=== PATIENT | male | born 2005 | race Caucasian/White ===

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

== ENCOUNTER → 2023-03-21 | Emergency (ER) | payer BC ==
[~2023-03-21] VITALS: Ht 190.5 cm; Wt 73.7 kg
[~2023-03-21] MED LIST changes: +ACETAMINOPHEN TAB 650MG DOSE (2X325MG) PO ONE; +AMOXICILLIN 500 MG CAP PO ONE; +AZITHROMYCIN 250MG TABLET PO ONE
[2023-03-21 10:14] VITALS: BP 135/70; TEMP 98.5; O2SAT 99
== END | disposition home or self-care (01) ==
LOC: M ED 06:31
DX: J03.00 Acute streptococcal tonsillitis, unspecified (principal); Z88.1 Allergy status to other antibiotic agents; Z88.8 Allergy status to other drugs, medicaments and biological substances; Z79.899 Other long term (current) drug therapy

== ENCOUNTER 2023-04-30 10:41 | Emergency (ER) | payer BC ==
[~2023-04-30] VITALS: Ht 190.5 cm; Wt 75.0 kg
[~2023-04-30 10:41] MED LIST changes: -ACETAMINOPHEN TAB 650MG DOSE (2X325MG) PO ONE; -AMOXICILLIN 500 MG CAP PO ONE; -AZITHROMYCIN 250MG TABLET PO ONE
[2023-04-30] MEDS ORDERED: SERTRALINE (10:51)
[2023-04-30] MEDS ORDERED: NS 1,000 ML IV ONE (12:55)
[2023-04-30 13:10] VITALS: BP 117/64; TEMP 97.4; O2SAT 100
== END 2023-04-30 13:28 | disposition home or self-care (01) ==
LOC: M ED 10:41
DX: R55 Syncope and collapse (principal); R00.1 Bradycardia, unspecified; F17.200 Nicotine dependence, unspecified, uncomplicated; Z88.0 Allergy status to penicillin; Z88.1 Allergy status to other antibiotic agents

== ENCOUNTER 2024-08-31 10:10 | Emergency (ER) | payer SELFPAY ==
[~2024-08-31] VITALS: Ht 188 cm; Wt 73.7 kg
[~2024-08-31 10:10] MED LIST changes: +SERTRALINE
[2024-08-31 10:47] LABS: HEMATOCRIT 44.9 % (42.0-52.0); HEMOGLOBIN 15.1 g/dl (13.5-17.5); MEAN CORPUSCULAR HEMOGLOBIN 27.2 pg (27.0-33.0); MEAN CORPUSCULAR HGB CONC 33.6 g/dl (32.0-36.5); MEAN CORPUSCULAR VOLUME 80.8 fl (80.0-96.0); PLATELET COUNT, AUTOMATED 235 10^3/uL (150-450); RED BLOOD COUNT 5.56 10^6/uL (4.30-6.10); WHITE BLOOD COUNT 7.2 10^3/uL (4.0-10.0)
[2024-08-31 11:15] LABS: AMPHETAMINES LEVEL URINE NEGATIVE (NEGATIVE); BARBITURATES URINE NEGATIVE (NEGATIVE); BENZODIAZEPINES URINE NEGATIVE (NEGATIVE); COCAINE METABOLITE URINE NEGATIVE (NEGATIVE); METHADONE URINE NEGATIVE (NEGATIVE); OPIATES URINE NEGATIVE (NEGATIVE); PHENCYCLIDINE URINE NEGATIVE (NEGATIVE)
[2024-08-31 11:17] LABS: CANNABINOIDS URINE POSITIVE (NEGATIVE)
[2024-08-31 11:18] LABS: ETHYL ALCOHOL (ETHANOL) < 0.003 % (0.000-0.010)
[2024-08-31 11:19] LABS: SALICYLATE LEVEL < 3.0 MG/DL (<30)
[2024-08-31 11:20] LABS: ALBUMIN 4.5 G/DL (3.2-5.2); ALKALINE PHOSPHATASE 51 U/L (40-129); ALT/SGPT 27 U/L (7.0-40); AST/SGOT 19 U/L (<34); BILIRUBIN,DIRECT 0.2 MG/DL (<0.4); BILIRUBIN,TOTAL 0.5 MG/DL (0.3-1.2); BLOOD UREA NITROGEN 14 MG/DL (9-23); CALCIUM LEVEL 9.5 MG/DL (8.5-10.1); CARBON DIOXIDE LEVEL 27 MMOL/L (20-31); CHLORIDE LEVEL 108 MMOL/L (98-107); CREATININE FOR GFR 0.67 MG/DL (0.70-1.30); GLOMERULAR FILTRATION RATE > 90.0 (>60); GLUCOSE, FASTING 94 MG/DL (60-100); POTASSIUM SERUM 4.1 MMOL/L (3.5-5.1); SODIUM LEVEL 143 MMOL/L (136-145); TOTAL PROTEIN 7.5 G/DL (5.7-8.2)
[2024-08-31 11:21] LABS: THYROID STIMULATING HORMONE 0.528 uIU/ML (0.55-4.78)
[2024-08-31 13:39] VITALS: BP 131/75; TEMP 98.1; O2SAT 100
== END 2024-08-31 13:37 | disposition home or self-care (01) ==
LOC: M ED 10:10
DX: F43.20 Adjustment disorder, unspecified (principal); F32.A Depression, unspecified; F17.210 Nicotine dependence, cigarettes, uncomplicated; F12.10 Cannabis abuse, uncomplicated; Z88.1 Allergy status to other antibiotic agents